=== PATIENT | female | born 1960 | race Native Hawaiian/Other Pacific Islander ===

== ENCOUNTER 2018-08-21 11:12 | Emergency (ER) | payer OTHER ==
[~2018-08-21] VITALS: Ht 157.5 cm; Wt 59.0 kg
[2018-08-21 11:16] VITALS: BP 141/74; TEMP 98.4
[2018-08-21 11:53] LABS: PLATELET COUNT 219 K/uL (152-353)
[2018-08-21 12:01] LABS: POTASSIUM 3.3 mmol/L (3.6-5.2)
[2018-08-21 12:08] LABS: PARTIAL THROMBOPLASTIN TIME 23.3 SECONDS (24.5-33.6)
== END 2018-08-21 14:15 | disposition home or self-care (01) ==
LOC: ED 11:12
PROVIDERS: Family Medicine
DX: S16.1XXA Strain of muscle, fascia and tendon at neck level, initial encounter (principal); X50.9XXA Other and unspecified overexertion or strenuous movements or postures, initial encounter; Y93.F2 Activity, caregiving, lifting; Y92.210 Daycare center as the place of occurrence of the external cause; Y99.0 Civilian activity done for income or pay; E87.6 Hypokalemia
CPT/HCPCS: 80053; 85027; 85379; 85610; 85730; 96372; 99283; J1885; Q9963

== ENCOUNTER 2020-03-31 14:15 | Outpatient (CLI) | payer OTHER | END 2020-03-31 22:03 | disposition home or self-care (01) | LOC: RAD 14:15 | PROVIDERS: ATTEND Nurse Practitioner Family | DX: R06.02 Shortness of breath (principal) ==

== ENCOUNTER 2020-04-30 11:30 | Emergency (ER) | payer OTHER ==
[~2020-04-30] VITALS: Ht 157.5 cm; Wt 63.5 kg
[2020-04-30 11:30] VITALS: TEMP 97.6
[2020-04-30 13:06] LABS: POTASSIUM 3.2 mmol/L (3.6-5.2); SODIUM 142 mmol/L (136-145)
[2020-04-30 13:38] LABS: PLATELET COUNT 268 K/uL (152-353)
[2020-04-30 14:47] VITALS: BP 127/72
== END 2020-04-30 14:50 | disposition home or self-care (01) ==
LOC: ED 11:47
PROVIDERS: Emergency Medicine Emergency Medical Services
DX: R07.89 Other chest pain (principal); F41.8 Other specified anxiety disorders; Z20.828 Contact with and (suspected) exposure to other viral communicable diseases
CPT/HCPCS: 36415; 80053; 84443; 84484; 85027; 87635; 93005; 96374; 99284; J2060; Q9963; U0003

== ENCOUNTER 2020-05-21 13:52 | Outpatient (CLI) | payer OTHER | END 2020-05-21 20:11 | disposition home or self-care (01) | LOC: RESP 13:52 | PROVIDERS: ATTEND Nurse Practitioner Family | DX: R60.0 Localized edema (principal) ==